=== PATIENT | female | born 1975 | race Caucasian/White ===

== ENCOUNTER 2016-12-03 23:39 | Emergency (ER) | payer MEDICAID ==
[~2016-12-03] VITALS: Ht 157.5 cm; Wt 83.5 kg
[~2016-12-03 23:39] MED LIST: ALBUTEROL; PEPTO BISMOL262 MG
[2016-12-04 00:20] VITALS: BP 130/90
--- NOTE | 2016-12-04 00:38 | NUR ---
PT TAKEN TO BED 3
--- NOTE | 2016-12-04 00:40 | NUR ---
41Y F BIB FAMILY C/O SOB, RIGHT EAR PAIN, AND SORE THROAT X 1 WEEK . PT STATES N/V/D; SKIN IS PINK/WARM/DRY; AAOX4 WITH EVEN AND STEADY GAIT; LUNGS CLEAR BL; HR EVEN AND REGULAR; PT DENIES ANY FEVER, CP,OR COUGH AT THIS TIME; PATIENT STATES PAIN OF 8/10 AT THIS TIME; VSS; PATIENT POSITIONED FOR COMFORT; HOB ELEVATED; BEDRAILS UP X2; BED DOWN. ER MD MADE AWARE OF PT STATUS.
--- NOTE | 2016-12-04 00:43 | NUR ---
Dr. Ojeda evaluating patient at bedside.
[2016-12-04] MEDS ORDERED: ALBUTEROL 0.083% 2.5 MG/3 ML NEBU INH ONE (00:45)
--- NOTE | 2016-12-04 00:49 | NUR ---
RT IS AT BEDSIDE
--- NOTE | 2016-12-04 01:21 | NUR ---
Patient discharged with v/s stable. Written and verbal after care instructions given and explained. Patient alert, oriented and verbalized understanding of instructions. Ambulatory with steady gait. All questions addressed prior to discharge. ID band removed. Patient advised to follow up with PMD. Rx of CLARITIN 10MG, MOTRIN 800MG, PRENDISONE 50MG, ALBUTEROL INHALER, ALBUTEROL NEB 0.083% given. Patient educated on indication of medication including possible reaction and side effects. Opportunity to ask questions provided and answered.
[2016-12-04 01:22] VITALS: BP 136/85
== END 2016-12-04 01:21 | disposition home or self-care (01) ==
LOC: MED 23:39
DX: J45.901 Unspecified asthma with (acute) exacerbation (principal); H66.91 Otitis media, unspecified, right ear; R03.0 Elevated blood-pressure reading, without diagnosis of hypertension; J02.9 Acute pharyngitis, unspecified
CPT/HCPCS: 94640; 94664; 99283; J7613

== ENCOUNTER 2017-04-13 16:39 | Emergency (ER) | payer MEDICAID ==
[~2017-04-13] VITALS: Ht 154.9 cm; Wt 83.0 kg
[2017-04-13 18:02] VITALS: BP 130/75
[2017-04-13] MEDS ORDERED: ONDANSETRON 4 MG ODT PO ONE ×2 (18:35→21:35)
[2017-04-13] MEDS ORDERED: MECLIZINE 25 MG TAB PO ONE ×2 (18:35→21:35)
--- NOTE | 2017-04-13 19:03 | NUR ---
MEDICATED --AND EKG COMPLETED IN TRIAGE---PT CONTINUES WITH VERTIGO AND NAUSEA---
--- NOTE | 2017-04-13 19:45 | NUR ---
PATIENT AMBULATED TO ER BED 3
--- NOTE | 2017-04-13 19:57 | NUR ---
Antivert and Zofran given per day shift triage nurse. Pt states still a little dizzy but not as bad as before. Denies nausea. C/o a h/a.
--- NOTE | 2017-04-13 20:47 | NUR ---
PATIENT BEING EVALUATED BY DR. GORDILLO.
[2017-04-13] MEDS ORDERED: KETOROLAC 60 MG/2 ML VIAL IM ONE (20:50)
[2017-04-13] MEDS ORDERED: ONDANSETRON 4 MG ODT ONE (21:17)
[2017-04-13] MEDS ORDERED: MECLIZINE 25 MG TAB ONE (21:17)
[2017-04-13 22:00] VITALS: BP 110/60
--- NOTE | 2017-04-13 22:00 | NUR ---
Patient discharged with v/s stable. Written and verbal after care instructions given and explained. Patient alert, oriented and verbalized understanding of instructions. Ambulatory with steady gait. All questions addressed prior to discharge. ID band removed. Patient advised to follow up with PMD. Rx of CIPRO, ZOFRAN, MOTRIN, MECLIZINE given. Patient educated on indication of medication including possible reaction and side effects. Opportunity to ask questions provided and answered.
== END 2017-04-13 22:00 | disposition home or self-care (01) ==
LOC: MED 16:39
DX: N12 Tubulo-interstitial nephritis, not specified as acute or chronic (principal); J45.909 Unspecified asthma, uncomplicated
CPT/HCPCS: 81002; 81025; 93005; 96372; 99284; J1885; J8597; S0119